=== PATIENT | female | born 1965 | race African-American/Black ===

== ENCOUNTER 2020-02-17 08:24 | Emergency (ER) | payer OTHER ==
[~2020-02-17] VITALS: Ht 170.2 cm; Wt 96.6 kg
[2020-02-17] MEDS ORDERED: NAPROSYN500 MG PO (09:31)
[2020-02-17 10:30] VITALS: BP 198/86
== END 2020-02-17 10:30 | disposition home or self-care (01) ==
LOC: ER 08:24
DX: M25.561 Pain in right knee (principal); F17.210 Nicotine dependence, cigarettes, uncomplicated; Z88.2 Allergy status to sulfonamides; X50.1XXA Overexertion from prolonged static or awkward postures, initial encounter; Y93.89 Activity, other specified; Y92.89 Other specified places as the place of occurrence of the external cause; Y99.8 Other external cause status

== ENCOUNTER → 2020-02-28 | Outpatient (CLI) | payer OTHER ==
[~2020-02-28] MED LIST: NAPROSYN500 MG PO
== END ==
LOC: MRI 12:00
PROVIDERS: ATTEND Family Medicine
DX: S82.001A Unspecified fracture of right patella, initial encounter for closed fracture (principal); S83.241A Other tear of medial meniscus, current injury, right knee, initial encounter; G89.29 Other chronic pain; M25.461 Effusion, right knee; M94.261 Chondromalacia, right knee; X58.XXXA Exposure to other specified factors, initial encounter; Y93.89 Activity, other specified; Y92.89 Other specified places as the place of occurrence of the external cause; Y99.8 Other external cause status

== ENCOUNTER → 2020-07-14 | Outpatient (CLI) | payer OTHER | LOC: ULTRA 09:33 | PROVIDERS: ATTEND Family Medicine | DX: E04.2 Nontoxic multinodular goiter (principal) ==

== ENCOUNTER → 2020-07-27 | Outpatient (CLI) | payer OTHER ==
[2020-07-27 10:40] LABS: CALCIUM 8.6 mg/dL (8.5-10.1); MAGNESIUM 1.9 mg/dL (1.8-2.4)
[2020-07-27 11:03] LABS: CALCIUM 8.8 mg/dL (8.5-10.1); CREATININE 0.8 mg/dL (0.6-1.0); PHOSPHORUS 3.8 mg/dL (2.5-4.9)
--- NOTE | 2020-07-31 15:07 | PATH ---
[facility] [address] [place] [address] PATHOLOGY RPT PROCEDURE Name: KORY DUNLAP Room #: REG HOLLIE Moss.#: [id number] Admission: 07/27/20 Date of : 65 Discharge: Report #: [id number] Path Case #: [id number] Note [facility] Accession Number: [id number] TESTS RESULT FLAG UNITS REF RANGE LAB Clinician Provided Cytology Information No. of containers..01 Other (Miscellaneous) Source: RT THYROID DIAGNOSIS: 02 RIGHT THYROID, FNA NEGATIVE FOR MALIGNANT EPITHELIAL CELLS. RED BLOOD CELLS ARE PRESENT. BENIGN CYST FLUID. THIS INTERPRETATION INCLUDES EVALUATION OF A CELL BLOCK. NO DEFINITE THYROID FOLLICULAR CELLS IDENTIFIED. Pathologist ICD10: 02 E04.1 Signed out by: Becky Delcid MD, Pathologist NPI- [id number] Performed by: Elisa Munoz, Supervisor [place] ([facility]) Gross description: 01 25ML, DARK RED, 1TP 1CB /LCS 07/28/2020 0708 Local FLAG LEGEND: L-Low Normal,H-High Normal,LL-Alert Low,HH-Alert High <-Panic Low,>-Panic High,A-Abnormal,AA-Critical Abnormal Performed at: [address] [place] [address] Miguel Chávez MD, [address] [id number] Pham Delcid MD, Specimen Comment: A courtesy copy of this report has been sent to [phone] Specimen Comment: Report sent to Specimen Comment: A duplicate report has been generated due to demographic updates. Performed at: [address], [place], [place] [id number] MD Miguel Chávez MD Phone: [phone]
== END | disposition home or self-care (01) ==
LOC: LAB 08:34 → ULTRA 08:34
PROVIDERS: ATTEND Otolaryngology Plastic Surgery within the Head & Neck
DX: E04.1 Nontoxic single thyroid nodule (principal); Z98.890 Other specified postprocedural states; Z88.2 Allergy status to sulfonamides

== ENCOUNTER 2020-11-18 12:24 | Emergency (ER) | payer OTHER ==
[~2020-11-18] VITALS: Ht 170.2 cm; Wt 95.7 kg
[2020-11-18 12:37] VITALS: BP 125/72
== END 2020-11-18 13:20 | disposition home or self-care (01) ==
LOC: ER 12:24
DX: U07.1 COVID-19 (principal); R05 Cough; M79.10 Myalgia, unspecified site; F17.210 Nicotine dependence, cigarettes, uncomplicated; Z88.1 Allergy status to other antibiotic agents